=== PATIENT | female | born 1960 | race Caucasian/White ===

== ENCOUNTER 2018-05-11 15:27 | Emergency (ER) | payer MEDICAID ==
[2018-05-11 17:10] LABS: URINE BLOOD (Dip) POC 3+ (NEGATIVE); URINE KETONES (Dip) POC Negative (NEGATIVE); URINE LEUKOCYTE EST (Dip) POC 1+ (NEGATIVE); URINE NITRITE (Dip) POC Negative (NEGATIVE); URINE TOTAL PROTEIN POC Negative (NEGATIVE)
[2018-05-11 17:10] LABS: URINE PH (Dip) POC 5.5 (5.0-8.5)
[2018-05-11] MEDS: CEFTRIAXONE 1 GM INJ IM (17:23)
[2018-05-11] MEDS: LIDOCAINE 1% (MDV) 10 ML INJ INFIL (17:23)
[2018-05-11] MEDS: NAPROXEN 500 MG TAB PO (17:33)
== END 2018-05-11 17:16 | disposition home or self-care (01) ==
LOC: FTE 17:16
DX: N39.0 Urinary tract infection, site not specified (principal)
CPT/HCPCS: 81003; 87086; 96372; 99284-25

== ENCOUNTER 2018-11-05 07:44 | Emergency (ER) | payer MEDICAID | END 2018-11-05 10:07 | disposition home or self-care (01) | LOC: FTE 07:44 | DX: R22.1 Localized swelling, mass and lump, neck (principal) | CPT/HCPCS: 70490; 99284-25 ==